=== PATIENT | male | born 1990 | race Caucasian/White ===

== ENCOUNTER 2021-08-17 12:21 | Inpatient (IN) ==
[2021-08-17] MEDS ORDERED: Isovue-370 500 ML BOTTLE IVP ONE (14:07)
[2021-08-17 14:38] LABS: Immature Granulocytes % 0.9 % (0-4); Mean Platelet Volume 11.8 fL (9.4-12.4)
[2021-08-17 14:48] LABS: Basophils # 0.1 K/mcL (0.0-0.2); Basophils % 0.2 %; Eosinophils # 0.4 K/mcL (0.0-0.6); Eosinophils % 1.2 %; Hemoglobin 14.2 g/dL (12.9-16.9); Lymphocytes # 1.9 K/mcL (0.6-4.6); Lymphocytes % 5.3 %; Mean Corpuscular HGB Conc 35.5 g/dL (31.6-35.5); Mean Corpuscular Hemoglobin 30.1 pg (28.0-33.3); Mean Corpuscular Volume 84.9 fL (83.0-100.0); Monocytes # 3.7 K/mcL (0.0-1.3); Monocytes % 10.3 %; Neutrophils # 29.5 K/mcL (1.6-8.9); Platelet Count 373 K/mcL (140-400); Red Blood Count 4.71 M/mcL (4.19-5.50); Segmented Neutrophils % 82.1 %
[2021-08-17 14:59] LABS: White Blood Count 35.9 K/mcL (4.3-11.1)
[2021-08-17 15:04] LABS: Alanine Aminotransferase 301 Units/L (7-52); Albumin 3.6 g/dL (3.5-5.7); Albumin/Globulin Ratio 1.1 (1.1-2.2); Alkaline Phosphatase 83 Units/L (34-104); Aspartate Amino Transferase 755 Units/L (13-39); BUN/Creatinine Ratio 30 (6-26); Bilirubin,Direct 0.2 mg/dL (0.0-0.2); Bilirubin,Indirect 0.7 mg/dL (0.0-1.0); Bilirubin,Total 0.9 mg/dL (0.3-1.0); Blood Urea Nitrogen 31 mg/dL (6-20); C-Reactive Protein 159 mg/L (Less than 10); Carbon Dioxide 29 mEq/L (23-29); Chloride 87 mEq/L (98-107); Globulin 3.2 g/dL (2.4-3.5); Glucose 129 mg/dL (70-105); Osmolality,Calculated 272 (280-300); Potassium 4.5 mEq/L (3.5-5.1); Sodium 127 mEq/L (136-145); Total Protein 6.8 g/dL (6.4-8.9); Troponin I 0.19 ng/mL (< 0.04); eGFR For African Americans > 60 (> 60); eGFR For Non-African Americans > 60 (> 60)
[2021-08-17] MEDS ORDERED: Piperacillin/Tazobactam 3.375 GM in 0.9 % Sodium Chloride Mini Bag 100 ML IVPB ONE (15:04)
[2021-08-17 15:10] LABS: INR 1.3; Prothrombin Time 14.4 Seconds (9.4-12.1)
[2021-08-17] MEDS ORDERED: 0.9 % Sodium Chloride 1,000 ML IVC ONE (15:12)
[2021-08-17 15:13] LABS: Activated Partial Thrombo Time 26.6 Seconds (26.0-36.0); Platelet Estimate Normal (Normal)
[2021-08-17] MEDS ORDERED: Vancomycin 1,250 MG/262.5 ML IV.SOLN IVPB ONE (15:15)
[2021-08-17 15:34] LABS: Bilirubin,Urine Negative (Negative); Blood,Urine Large (Negative); Clarity,Urine Clear (Clear); Color,Urine Yellow (Yellow); Glucose,Urine (UA) Normal (Normal); Ketones,Urine 60 mg/dL (Negative); Leukocyte Esterase,Urine Negative (Negative); Mucus,Urine Few per lpf (None-Few); Nitrite,Urine Negative (Negative); Protein,Urine 70 mg/dL (Neg-Trace); Specific Gravity,Urine > 1.030 (1.010-1.025); WBC,Urine 0-3 per hpf (0-3)
[2021-08-17 15:38] LABS: Amphetamine Screen,Urine Positive ng/mL (Cutoff=1000); Barbiturate Screen,Urine Negative ng/mL (Cutoff=200); Benzodiazepines Screen,Urine Negative ng/mL (Cutoff=200); Cannabinoid Screen,Urine Positive ng/mL (Cutoff = 50); Cocaine Screen,Urine Negative ng/mL (Cutoff= 300); Opiate Screen,Urine Negative ng/mL (Cutoff=300); Phencyclidine Screen,Urine Negative ng/mL (Cutoff=25)
[2021-08-17] MEDS ORDERED: Ondansetron 4 MG/2 ML VIAL IVP PRN (16:00)
[2021-08-17] MEDS ORDERED: 0.9 % Sodium Chloride 1,000 ML IVC SCH (16:00)
[2021-08-17] MEDS ORDERED: Naloxone 0.4 MG/ML INJ IVP PRN (16:00)
[2021-08-17 16:20] LABS: Creatine Kinase > 20000 Units/L (30-223)
[2021-08-17] MEDS: Ketorolac 30 MG/ML VIAL IVP PRN (17:39)
[2021-08-17] MEDS: 0.9 % Sodium Chloride 1,000 ML IVC SCH (17:46)
[2021-08-17] MEDS: Piperacillin/Tazobactam 3.375 GM in 0.9 % Sodium Chloride Mini Bag 100 ML IVPB SCH (23:35)
[2021-08-18] MEDS: 0.9 % Sodium Chloride 1,000 ML IVC SCH ×5 (01:37→22:51)
[2021-08-18] MEDS ORDERED: Vancomycin 1,250 MG/262.5 ML IV.SOLN IVPB SCH (02:00)
[2021-08-18 05:50] LABS: Basophils % 0.2 %; Eosinophils % 0.1 %; Hemoglobin 13.4 g/dL (12.9-16.9); Immature Granulocytes % 0.7 % (0-4); Lymphocytes # 1.7 K/mcL (0.6-4.6); Lymphocytes % 6.9 %; Mean Corpuscular HGB Conc 34.4 g/dL (31.6-35.5); Mean Corpuscular Hemoglobin 29.6 pg (28.0-33.3); Mean Corpuscular Volume 86.3 fL (83.0-100.0); Mean Platelet Volume 11.2 fL (9.4-12.4); Monocytes # 2.2 K/mcL (0.0-1.3); Monocytes % 9.1 %; Neutrophils # 20.1 K/mcL (1.6-8.9); Platelet Count 325 K/mcL (140-400); Red Blood Count 4.52 M/mcL (4.19-5.50); Red Cell Distribution Width 14.6 % (11.5-14.5); White Blood Count 24.2 K/mcL (4.3-11.1)
[2021-08-18 06:26] LABS: BUN/Creatinine Ratio 18 (6-26); Blood Urea Nitrogen 18 mg/dL (6-20); Calcium 8.3 mg/dL (8.6-10.3); Carbon Dioxide 28 mEq/L (23-29); Chloride 94 mEq/L (98-107); Glucose 90 mg/dL (70-105); Magnesium 1.9 mg/dL (1.6-2.6); Osmolality,Calculated 277 (280-300); Sodium 133 mEq/L (136-145); eGFR For African Americans > 60 (> 60); eGFR For Non-African Americans > 60 (> 60)
[2021-08-18] MEDS: Ketorolac 30 MG/ML VIAL IVP PRN ×2 (06:27→12:41)
[2021-08-18] MEDS: Piperacillin/Tazobactam 3.375 GM in 0.9 % Sodium Chloride Mini Bag 100 ML IVPB SCH (07:45)
[2021-08-18 08:48] LABS: Creatine Kinase 13200 Units/L (30-223)
[2021-08-18 12:01] LABS: A.calcoaceticus-baumannii cplx Not Detected (Not Detect); Bacteroides fragilis by PCR Not Detected (Not Detect); Candida albicans by PCR Not Detected (Not Detect); Candida auris by PCR Not Detected (Not Detect); Candida glabrata by PCR Not Detected (Not Detect); Candida krusei by PCR Not Detected (Not Detect); Candida parapsilosis by PCR Not Detected (Not Detect); Candida tropicalis by PCR Not Detected (Not Detect); Crypto. neoformans/gattii PCR Not Detected (Not Detect); Enterobacter cloacae Cmplx PCR Not Detected (Not Detect); Enterobacterales by PCR Not Detected (Not Detect); Enterococcus faecalis by PCR Not Detected (Not Detect); Enterococcus faecium by PCR Not Detected (Not Detect); Escherichia coli by PCR Not Detected (Not Detect); Klebs. pneumoniae group by PCR Not Detected (Not Detect); Klebsiella aerogenes by PCR Not Detected (Not Detect); Klebsiella oxytoca by PCR Not Detected (Not Detect); Proteus by PCR Not Detected (Not Detect); Pseudomonas aeruginosa by PCR Not Detected (Not Detect); Salmonella species by PCR Not Detected (Not Detect); Serratia marcescens by PCR Not Detected (Not Detect); Staph epidermidis by PCR Not Detected (Not Detect); Staph lugdunensis by PCR Not Detected (Not Detect); Staphylococcus aureus by PCR DETECTED (Not Detect); Stenotrophomonas maltophilia Not Detected (Not Detect); Streptococcus agalactiae(B)PCR Not Detected (Not Detect); Streptococcus by PCR Not Detected (Not Detect); Streptococcus pneumoniae PCR Not Detected (Not Detect); Streptococcus pyogenes (A) PCR Not Detected (Not Detect); mecA/C & MREJ (MRSA) Gene DETECTED (Not Detect)
[2021-08-18] MEDS ORDERED: Perflutren Lipid Microsphere 1.3 ML in 0.9 % Sodium Chloride 8.7 ML IVP PRN (12:16)
[2021-08-18] MEDS: Vancomycin 1,750 MG/517.5 ML IV.SOLN IVPB SCH (14:44)
[2021-08-18] MEDS ORDERED: Gadolinium Contrast Agent (WT Based) IV PRN (17:59)
[2021-08-18] MEDS ORDERED: Famotidine 20 MG/2 ML VIAL IVP ONE (18:14)
[2021-08-18] MEDS: *HR* OxyCODONE/APAP 5/325 TABLET PO PRN (19:51)
[2021-08-19] MEDS: Vancomycin 1,750 MG/517.5 ML IV.SOLN IVPB SCH ×3 (02:58→21:33)
[2021-08-19] MEDS: *HR* OxyCODONE/APAP 5/325 TABLET PO PRN ×3 (05:15→19:14)
[2021-08-19 06:31] LABS: Mean Corpuscular HGB Conc 33.3 g/dL (31.6-35.5); Mean Corpuscular Hemoglobin 29.5 pg (28.0-33.3); Mean Corpuscular Volume 88.6 fL (83.0-100.0); Platelet Count 377 K/mcL (140-400); Red Cell Distribution Width 15.3 % (11.5-14.5); White Blood Count 20.5 K/mcL (4.3-11.1)
[2021-08-19 08:07] LABS: Hepatitis B Surface Antigen Nonreactive (Nonreactive)
[2021-08-19 08:20] LABS: BUN/Creatinine Ratio 12 (6-26); Blood Urea Nitrogen 9 mg/dL (6-20); Calcium 8.4 mg/dL (8.6-10.3); Carbon Dioxide 24 mEq/L (23-29); Chloride 104 mEq/L (98-107); Creatine Kinase 3109 Units/L (30-223); Glucose 148 mg/dL (70-105); Osmolality,Calculated 281 (280-300); Potassium 4.4 mEq/L (3.5-5.1); Sodium 135 mEq/L (136-145); eGFR For African Americans > 60 (> 60); eGFR For Non-African Americans > 60 (> 60)
[2021-08-19 08:38] LABS: HIV-1&2 Antibody & p24 Ag Nonreactive (Nonreactive)
[2021-08-19 11:43] LABS: Hepatitis C Virus Antibody Reactive (Nonreactive)
[2021-08-19 13:47] LABS: Hepatitis B Surface Antigen Nonreactive (Nonreactive)
[2021-08-19 14:16] LABS: Hepatitis B Core IgM Nonreactive (Nonreactive)
[2021-08-19 14:18] LABS: Hepatitis A Antibody IgM Nonreactive (Nonreactive)
[2021-08-19 15:39] LABS: Hepatitis C Virus Antibody Reactive (Nonreactive)
[2021-08-19] MEDS: Acetaminophen 325 MG TABLET PO PRN (21:32)
[2021-08-20] MEDS: Vancomycin 1,750 MG/517.5 ML IV.SOLN IVPB SCH ×2 (05:53→18:22)
[2021-08-20 06:03] LABS: Basophils # 0.1 K/mcL (0.0-0.2); Basophils % 0.3 %; Hematocrit 38.7 % (37.5-50.1); Hemoglobin 12.6 g/dL (12.9-16.9); Immature Granulocytes % 1.1 % (0-4); Lymphocytes # 2.8 K/mcL (0.6-4.6); Lymphocytes % 13.5 %; Mean Corpuscular HGB Conc 32.6 g/dL (31.6-35.5); Mean Corpuscular Hemoglobin 28.9 pg (28.0-33.3); Mean Corpuscular Volume 88.8 fL (83.0-100.0); Mean Platelet Volume 10.7 fL (9.4-12.4); Monocytes # 1.5 K/mcL (0.0-1.3); Monocytes % 7.2 %; Neutrophils # 15.9 K/mcL (1.6-8.9); Platelet Count 436 K/mcL (140-400); Red Blood Count 4.36 M/mcL (4.19-5.50); Red Cell Distribution Width 15.5 % (11.5-14.5); Segmented Neutrophils % 77.9 %; White Blood Count 20.4 K/mcL (4.3-11.1)
[2021-08-20 06:19] LABS: Alanine Aminotransferase 129 Units/L (7-52); Albumin 3.1 g/dL (3.5-5.7); Alkaline Phosphatase 60 Units/L (34-104); Aspartate Amino Transferase 90 Units/L (13-39); BUN/Creatinine Ratio 17 (6-26); Bilirubin,Total 0.4 mg/dL (0.3-1.0); Blood Urea Nitrogen 14 mg/dL (6-20); Calcium 8.6 mg/dL (8.6-10.3); Carbon Dioxide 24 mEq/L (23-29); Chloride 103 mEq/L (98-107); Potassium 4.3 mEq/L (3.5-5.1); Sodium 135 mEq/L (136-145); Total Protein 6.1 g/dL (6.4-8.9); eGFR For African Americans > 60 (> 60); eGFR For Non-African Americans > 60 (> 60)
[2021-08-20] MEDS: *HR* OxyCODONE/APAP 5/325 TABLET PO PRN ×3 (07:55→21:32)
[2021-08-20 08:46] LABS: Glucose 92 mg/dL (70-105); Osmolality,Calculated 280 (280-300)
[2021-08-20] MEDS ORDERED: CeFAZolin Syr 2,000MG/20 ML 2,000 MG/20 ML SYRINGE IVPB ONE (13:31)
[2021-08-20] MEDS ORDERED: Ringers Solution, Lactated 1,000 ML IVC SCH (13:45)
[2021-08-20] MEDS ORDERED: Ondansetron 4 MG/2 ML VIAL IVP PRN (13:51)
[2021-08-20] MEDS ORDERED: *HR* OxyCODONE/APAP 5/325 TABLET PO PRN (13:51)
[2021-08-20] MEDS ORDERED: Albuterol 2.5 MG/3 ML NEBULIZER IH PRN (13:51)
[2021-08-20] MEDS ORDERED: *HR* Meperidine 25 MG/ML SYRINGE IVP PRN (13:51)
[2021-08-20] MEDS ORDERED: Ipratropium Neb 0.5 MG NEBULIZER IH PRN (13:51)
[2021-08-20] MEDS ORDERED: Promethazine 6.25 MG in Water for inj. (sterile) 20 ML IVPB PRN (13:51)
[2021-08-20] MEDS ORDERED: *HR* HYDROmorphone PF 0.5 MG/0.5 ML SYRINGE IVP PRN (13:51)
[2021-08-20] MEDS ORDERED: *HR* Labetalol 20 MG/4 ML SYRINGE IVP PRN (13:51)
[2021-08-20] MEDS ORDERED: *HR* FentaNYL (PF) 100 MCG/2 ML VIAL ONE (14:37)
[2021-08-20] MEDS ORDERED: Lidocaine -MPF 2% 5 ML VIAL ONE ×2 (14:37→15:35)
[2021-08-20] MEDS ORDERED: *HR* Propofol 200 MG/20 ML VIAL IVP ONE ×2 (14:38→15:46)
[2021-08-20] MEDS ORDERED: *HR* Midazolam HCl 2 MG/2 ML VIAL ONE (14:38)
[2021-08-20] MEDS ORDERED: Ondansetron 4 MG/2 ML VIAL ONE (14:46)
[2021-08-20] MEDS ORDERED: Dexmedetomidine HCl 400 MCG/100 ML MLS IVC ONE (14:49)
[2021-08-20] MEDS ORDERED: Lidocaine/EPI 1:100k 1% 30 ML VIAL ONE (15:11)
[2021-08-20] MEDS ORDERED: Ketamine HCL *QUVA* 50mg (1mL) SYRINGE ONE (15:43)
[2021-08-20] MEDS: *HR* FentaNYL (PF) 100 MCG/2 ML VIAL IVP PRN ×2 (16:46→17:05)
[2021-08-21 01:32] LABS: Basophils # 0.1 K/mcL (0.0-0.2); Basophils % 0.3 %; Eosinophils # 0.1 K/mcL (0.0-0.6); Eosinophils % 0.4 %; Hematocrit 40.9 % (37.5-50.1); Hemoglobin 13.7 g/dL (12.9-16.9); Immature Granulocytes % 1.5 % (0-4); Lymphocytes # 1.4 K/mcL (0.6-4.6); Lymphocytes % 7.8 %; Mean Corpuscular HGB Conc 33.5 g/dL (31.6-35.5); Mean Corpuscular Hemoglobin 29.6 pg (28.0-33.3); Mean Corpuscular Volume 88.3 fL (83.0-100.0); Mean Platelet Volume 10.6 fL (9.4-12.4); Monocytes # 0.8 K/mcL (0.0-1.3); Monocytes % 4.2 %; Neutrophils # 15.6 K/mcL (1.6-8.9); Platelet Count 507 K/mcL (140-400); Red Blood Count 4.63 M/mcL (4.19-5.50); Red Cell Distribution Width 15.5 % (11.5-14.5); Segmented Neutrophils % 85.8 %; White Blood Count 18.2 K/mcL (4.3-11.1)
[2021-08-21 01:48] LABS: Alanine Aminotransferase 129 Units/L (7-52); Albumin 3.1 g/dL (3.5-5.7); Albumin/Globulin Ratio 0.9 (1.1-2.2); Alkaline Phosphatase 63 Units/L (34-104); Aspartate Amino Transferase 91 Units/L (13-39); BUN/Creatinine Ratio 20 (6-26); Bilirubin,Total 0.3 mg/dL (0.3-1.0); Blood Urea Nitrogen 17 mg/dL (6-20); Calcium 8.8 mg/dL (8.6-10.3); Carbon Dioxide 24 mEq/L (23-29); Chloride 103 mEq/L (98-107); Globulin 3.5 g/dL (2.4-3.5); Glucose 152 mg/dL (70-105); Osmolality,Calculated 281 (280-300); Potassium 4.8 mEq/L (3.5-5.1); Sodium 133 mEq/L (136-145); Total Protein 6.6 g/dL (6.4-8.9); eGFR For African Americans > 60 (> 60); eGFR For Non-African Americans > 60 (> 60)
[2021-08-21] MEDS: *HR* OxyCODONE/APAP 5/325 TABLET PO PRN ×4 (07:33→22:43)
[2021-08-21] MEDS: Vancomycin 1,500 MG/265 ML IV.SOLN IVPB SCH ×3 (07:34→22:43)
[2021-08-21] MEDS ORDERED: Lidocaine Viscous Oral Soln 15 ML SOLUTION MM PRN (10:24)
[2021-08-21] MEDS ORDERED: 0.9 % Sodium Chloride 500 ML IVC ONE (10:25)
[2021-08-21] MEDS: *HR* FentaNYL (PF) 100 MCG/2 ML VIAL IVP PRN ×4 (10:50→11:05)
[2021-08-21] MEDS: *HR* Midazolam HCl 5 MG/5 ML VIAL IVP PRN ×4 (10:50→11:05)
[2021-08-22] MEDS: Vancomycin 1,500 MG/265 ML IV.SOLN IVPB SCH ×3 (06:26→21:49)
[2021-08-22] MEDS: *HR* OxyCODONE/APAP 5/325 TABLET PO PRN ×4 (06:26→21:46)
[2021-08-22 08:26] LABS: Basophils # 0.1 K/mcL (0.0-0.2); Basophils % 0.7 %; Eosinophils # 0.1 K/mcL (0.0-0.6); Eosinophils % 0.6 %; Hematocrit 40.5 % (37.5-50.1); Hemoglobin 13.4 g/dL (12.9-16.9); Immature Granulocytes % 1.9 % (0-4); Lymphocytes # 3.6 K/mcL (0.6-4.6); Lymphocytes % 26.9 %; Mean Corpuscular HGB Conc 33.1 g/dL (31.6-35.5); Mean Corpuscular Hemoglobin 28.8 pg (28.0-33.3); Mean Corpuscular Volume 87.1 fL (83.0-100.0); Mean Platelet Volume 9.9 fL (9.4-12.4); Monocytes # 1.3 K/mcL (0.0-1.3); Monocytes % 9.5 %; Neutrophils # 8.1 K/mcL (1.6-8.9); Platelet Count 482 K/mcL (140-400); Red Blood Count 4.65 M/mcL (4.19-5.50); Red Cell Distribution Width 15.7 % (11.5-14.5); Segmented Neutrophils % 60.4 %; White Blood Count 13.4 K/mcL (4.3-11.1)
[2021-08-22 08:48] LABS: Alanine Aminotransferase 131 Units/L (7-52); Alkaline Phosphatase 61 Units/L (34-104); Aspartate Amino Transferase 89 Units/L (13-39); BUN/Creatinine Ratio 18 (6-26); Bilirubin,Total 0.3 mg/dL (0.3-1.0); Blood Urea Nitrogen 15 mg/dL (6-20); Calcium 8.3 mg/dL (8.6-10.3); Carbon Dioxide 27 mEq/L (23-29); Chloride 101 mEq/L (98-107); Glucose 84 mg/dL (70-105); Osmolality,Calculated 274 (280-300); Potassium 4.1 mEq/L (3.5-5.1); Sodium 132 mEq/L (136-145); eGFR For African Americans > 60 (> 60); eGFR For Non-African Americans > 60 (> 60)
[2021-08-22 11:08] LABS: HCV Quant Interpretation DETECTED (Not Detected); HCV Quant Log 7.17 log IU/mL
[2021-08-23] MEDS: *HR* OxyCODONE/APAP 5/325 TABLET PO PRN ×6 (02:39→22:53)
[2021-08-23 05:40] LABS: Basophils # 0.1 K/mcL (0.0-0.2); Basophils % 0.4 %; Eosinophils # 0.2 K/mcL (0.0-0.6); Eosinophils % 1.1 %; Immature Granulocytes % 4.4 % (0-4); Lymphocytes # 3.7 K/mcL (0.6-4.6); Lymphocytes % 26.7 %; Mean Corpuscular HGB Conc 33.3 g/dL (31.6-35.5); Mean Corpuscular Hemoglobin 29.2 pg (28.0-33.3); Mean Corpuscular Volume 87.7 fL (83.0-100.0); Monocytes # 1.4 K/mcL (0.0-1.3); Neutrophils # 7.9 K/mcL (1.6-8.9); Platelet Count 549 K/mcL (140-400); Red Blood Count 4.79 M/mcL (4.19-5.50); Red Cell Distribution Width 15.3 % (11.5-14.5); Segmented Neutrophils % 57.4 %; White Blood Count 13.7 K/mcL (4.3-11.1)
[2021-08-23 05:58] LABS: Platelet Estimate Increased (Normal); Reactive Lymphocytes Present (Not Present)
[2021-08-23] MEDS: Vancomycin 1,500 MG/265 ML IV.SOLN IVPB SCH ×3 (06:34→22:53)
[2021-08-23 06:41] LABS: Alanine Aminotransferase 135 Units/L (7-52); Albumin 3.1 g/dL (3.5-5.7); Alkaline Phosphatase 71 Units/L (34-104); Aspartate Amino Transferase 74 Units/L (13-39); BUN/Creatinine Ratio 15 (6-26); Bilirubin,Total 0.2 mg/dL (0.3-1.0); Blood Urea Nitrogen 14 mg/dL (6-20); Calcium 8.5 mg/dL (8.6-10.3); Carbon Dioxide 28 mEq/L (23-29); Chloride 101 mEq/L (98-107); Globulin 3.1 g/dL (2.4-3.5); Glucose 98 mg/dL (70-105); Osmolality,Calculated 280 (280-300); Potassium 3.9 mEq/L (3.5-5.1); Sodium 135 mEq/L (136-145); Total Protein 6.2 g/dL (6.4-8.9); eGFR For African Americans > 60 (> 60); eGFR For Non-African Americans > 60 (> 60)
[2021-08-24 01:25] LABS: Basophils # 0.2 K/mcL (0.0-0.2); Basophils % 1.2 %; Eosinophils # 0.3 K/mcL (0.0-0.6); Eosinophils % 1.7 %; Hematocrit 40.8 % (37.5-50.1); Hemoglobin 13.4 g/dL (12.9-16.9); Lymphocytes % 23.8 %; Mean Corpuscular HGB Conc 32.8 g/dL (31.6-35.5); Mean Corpuscular Volume 88.3 fL (83.0-100.0); Mean Platelet Volume 10.2 fL (9.4-12.4); Monocytes # 1.5 K/mcL (0.0-1.3); Monocytes % 9.1 %; Neutrophils # 9.8 K/mcL (1.6-8.9); Platelet Count 557 K/mcL (140-400); Red Blood Count 4.62 M/mcL (4.19-5.50); Red Cell Distribution Width 15.4 % (11.5-14.5); Segmented Neutrophils % 58.2 %; White Blood Count 16.9 K/mcL (4.3-11.1)
[2021-08-24 01:44] LABS: Alanine Aminotransferase 138 Units/L (7-52); Albumin/Globulin Ratio 0.9 (1.1-2.2); Alkaline Phosphatase 79 Units/L (34-104); Aspartate Amino Transferase 79 Units/L (13-39); BUN/Creatinine Ratio 17 (6-26); Bilirubin,Total 0.2 mg/dL (0.3-1.0); Blood Urea Nitrogen 17 mg/dL (6-20); Calcium 8.4 mg/dL (8.6-10.3); Carbon Dioxide 25 mEq/L (23-29); Chloride 102 mEq/L (98-107); Globulin 3.2 g/dL (2.4-3.5); Glucose 118 mg/dL (70-105); Osmolality,Calculated 281 (280-300); Potassium 3.5 mEq/L (3.5-5.1); Sodium 134 mEq/L (136-145); Total Protein 6.2 g/dL (6.4-8.9); eGFR For African Americans > 60 (> 60); eGFR For Non-African Americans > 60 (> 60)
[2021-08-24 01:45] LABS: Platelet Estimate Marked Increase (Normal); Reactive Lymphocytes Present (Not Present)
[2021-08-24] MEDS: *HR* OxyCODONE/APAP 5/325 TABLET PO PRN ×5 (03:41→20:50)
[2021-08-24] MEDS: Vancomycin 1,500 MG/265 ML IV.SOLN IVPB SCH ×2 (05:33→17:05)
[2021-08-24] MEDS ORDERED: Ibuprofen 600 MG TABLET PO PRN (21:40)
[2021-08-25] MEDS: Acetaminophen 325 MG TABLET PO PRN
[2021-08-25 02:59] LABS: Basophils # 0.1 K/mcL (0.0-0.2); Eosinophils # 0.4 K/mcL (0.0-0.6); Eosinophils % 2.6 %; Hematocrit 40.9 % (37.5-50.1); Hemoglobin 13.5 g/dL (12.9-16.9); Immature Granulocytes % 6.6 % (0-4); Lymphocytes # 3.7 K/mcL (0.6-4.6); Lymphocytes % 27.6 %; Mean Corpuscular Hemoglobin 29.3 pg (28.0-33.3); Mean Corpuscular Volume 88.7 fL (83.0-100.0); Mean Platelet Volume 10.2 fL (9.4-12.4); Monocytes # 1.3 K/mcL (0.0-1.3); Monocytes % 9.9 %; Platelet Count 551 K/mcL (140-400); Red Blood Count 4.61 M/mcL (4.19-5.50); Red Cell Distribution Width 15.7 % (11.5-14.5); Segmented Neutrophils % 52.3 %; White Blood Count 13.4 K/mcL (4.3-11.1)
[2021-08-25 03:04] LABS: Platelet Estimate Increased (Normal); Reactive Lymphocytes Present (Not Present)
[2021-08-25 03:18] LABS: Alanine Aminotransferase 141 Units/L (7-52); Albumin 3.2 g/dL (3.5-5.7); Albumin/Globulin Ratio 1.1 (1.1-2.2); Alkaline Phosphatase 78 Units/L (34-104); Aspartate Amino Transferase 79 Units/L (13-39); BUN/Creatinine Ratio 13 (6-26); Bilirubin,Total 0.2 mg/dL (0.3-1.0); Blood Urea Nitrogen 12 mg/dL (6-20); Calcium 8.6 mg/dL (8.6-10.3); Carbon Dioxide 26 mEq/L (23-29); Chloride 102 mEq/L (98-107); Glucose 108 mg/dL (70-105); Osmolality,Calculated 282 (280-300); Potassium 3.9 mEq/L (3.5-5.1); Sodium 136 mEq/L (136-145); Total Protein 6.2 g/dL (6.4-8.9); eGFR For African Americans > 60 (> 60); eGFR For Non-African Americans > 60 (> 60)
[2021-08-25] MEDS: *HR* OxyCODONE/APAP 5/325 TABLET PO PRN ×6 (04:00→21:30)
[2021-08-25] MEDS: Vancomycin 1,500 MG/265 ML IV.SOLN IVPB SCH ×4 (07:41→22:24)
[2021-08-25] MEDS ORDERED: Lidocaine -MPF 1% 5 ML AMPUL INFILT ONE (14:49)
[2021-08-25 14:50] LABS: HCV Genotype by Sequencing 1A OR 1B
[2021-08-26] MEDS: *HR* OxyCODONE/APAP 5/325 TABLET PO PRN ×6 (02:18→23:07)
[2021-08-26] MEDS: Vancomycin 1,500 MG/265 ML IV.SOLN IVPB SCH ×3 (06:56→23:08)
[2021-08-27] MEDS: *HR* OxyCODONE/APAP 5/325 TABLET PO PRN ×5 (02:58→20:30)
[2021-08-27] MEDS: Vancomycin 1,500 MG/265 ML IV.SOLN IVPB SCH (06:08)
[2021-08-27] MEDS: Vancomycin 1,750 MG/517.5 ML IV.SOLN IVPB SCH (14:23)
[2021-08-28] MEDS: *HR* OxyCODONE/APAP 5/325 TABLET PO PRN ×5 (01:24→18:56)
[2021-08-28] MEDS: Vancomycin 1,750 MG/517.5 ML IV.SOLN IVPB SCH ×2 (01:26→15:27)
[2021-08-28 02:26] LABS: Basophils # 0.1 K/mcL (0.0-0.2); Eosinophils # 0.4 K/mcL (0.0-0.6); Eosinophils % 3.4 %; Hematocrit 42.6 % (37.5-50.1); Hemoglobin 13.9 g/dL (12.9-16.9); Immature Granulocytes % 0.7 % (0-4); Lymphocytes # 3.2 K/mcL (0.6-4.6); Mean Corpuscular HGB Conc 32.6 g/dL (31.6-35.5); Mean Corpuscular Hemoglobin 29.2 pg (28.0-33.3); Mean Corpuscular Volume 89.5 fL (83.0-100.0); Mean Platelet Volume 10.5 fL (9.4-12.4); Monocytes # 1.2 K/mcL (0.0-1.3); Monocytes % 11.4 %; Neutrophils # 5.5 K/mcL (1.6-8.9); Platelet Count 494 K/mcL (140-400); Red Blood Count 4.76 M/mcL (4.19-5.50); Red Cell Distribution Width 15.5 % (11.5-14.5); Segmented Neutrophils % 52.5 %; White Blood Count 10.4 K/mcL (4.3-11.1)
[2021-08-28 02:44] LABS: BUN/Creatinine Ratio 11 (6-26); Blood Urea Nitrogen 15 mg/dL (6-20); Calcium 9.5 mg/dL (8.6-10.3); Carbon Dioxide 31 mEq/L (23-29); Chloride 99 mEq/L (98-107); Glucose 95 mg/dL (70-105); Osmolality,Calculated 283 (280-300); Potassium 4.4 mEq/L (3.5-5.1); Sodium 136 mEq/L (136-145); eGFR For African Americans > 60 (> 60); eGFR For Non-African Americans > 60 (> 60)
[2021-08-28 16:40] LABS: eGFR For African Americans > 60 (> 60); eGFR For Non-African Americans > 60 (> 60)
[2021-08-28 19:06] VITALS: BP 154/91; PULSE 96; TEMP 97.8; O2SAT 95
[2021-08-28] MEDS ORDERED: Vancomycin 1,500 MG/265 ML IV.SOLN IVPB SCH (23:00)
== END 2021-08-28 22:00 | disposition left against medical advice (07) | DRG 710 ==
LOC: 3NENU 12:21 → EMEROOARM 12:21 → 3NENU 15:56 → SUATTDRO 16:51
PROVIDERS: ADMIT Nurse Practitioner; ATTEND Nurse Practitioner